=== PATIENT | male | born 1965 | race Caucasian/White ===

== ENCOUNTER 2019-04-15 15:43 | Emergency (ER) | payer SELFPAY ==
[~2019-04-15] VITALS: Ht 185.5 cm; Wt 105.0 kg
[2019-04-15] MEDS ORDERED: ASPIRIN 325 MG (5 GR) TABLET PO ONE (17:15)
[2019-04-15] MEDS ORDERED: KETOROLAC 30 MG/ML VIAL IVP ONE (17:15)
[2019-04-15] MEDS ORDERED: ACETAMINOPHEN 325 MG TABLET PO ONE (17:15)
[2019-04-15 17:25] LABS: WHITE BLOOD COUNT 5.1 10^3/uL (4.3-11.0)
[2019-04-15 17:26] LABS: BASOPHILS % (AUTO) 1 % (0-10); EOSINOPHILS % (AUTO) 2 % (0-10); HEMATOCRIT 45 % (40-54); HEMOGLOBIN 15.4 G/DL (13.3-17.7); LYMPHOCYTES % (AUTO) 33 % (12-44); MEAN CORPUSCULAR HEMOGLOBIN 30 PG (25-34); MEAN CORPUSCULAR HGB CONC 34 G/DL (32-36); MEAN CORPUSCULAR VOLUME 89 FL (80-99); MEAN PLATELET VOLUME 11.2 FL (7.4-10.4); MONOCYTES % (AUTO) 9 % (0-12); NEUTROPHILS % (AUTO) 55 % (42-75); PLATELET COUNT 161 10^3/uL (130-400); RED CELL DISTRIBUTION WIDTH 11.7 % (10.0-14.5)
[2019-04-15 17:27] LABS: EOSINOPHILS # (AUTO) 0.1 10^3/uL (0.0-0.3); LYMPHOCYTES # (AUTO) 1.7 X 10^3 (1.0-4.0); MONOCYTES # (AUTO) 0.5 X 10^3 (0.0-1.0); NEUTROPHILS # (AUTO) 2.8 X 10^3 (1.8-7.8)
--- NOTE | 2019-04-15 17:29 | Diagnostic Imaging Report ---
PATIENT HISTORY: Back pain and chest pain. TECHNIQUE: Two views of the chest. COMPARISON: None. FINDINGS: The lung volumes are normal. No focal consolidation is seen. No large pleural effusion or pneumothorax is seen. The cardiomediastinal silhouette is normal in size and contour. No acute osseous abnormality is seen. IMPRESSION: No acute pulmonary abnormality seen. Dictated by: Dictated on workstation # [id number]
[2019-04-15 17:38] LABS: INR 0.9 (0.8-1.4); PROTHROMBIN TIME PATIENT 12.9 SEC (12.2-14.7)
[2019-04-15 17:39] LABS: FIBRIN DEGRADATION PRODUCTS 0.36 UG/ML (0.00-0.49)
[2019-04-15 17:46] LABS: ALANINE AMINOTRANSFERASE 37 U/L (0-55); ALKALINE PHOSPHATASE 77 U/L (40-136); BILIRUBIN,TOTAL 1.3 MG/DL (0.1-1.0); BUN/CREATININE RATIO 11; CALCIUM 9.5 MG/DL (8.5-10.1); CARBON DIOXIDE 23 MMOL/L (21-32); CHLORIDE 106 MMOL/L (98-107); CREATININE SERUM 1.05 MG/DL (0.60-1.30); GFR ESTIMATED > 60; GLUCOSE 107 MG/DL (70-105); POTASSIUM 4.1 MMOL/L (3.6-5.0); SODIUM 141 MMOL/L (135-145); TOTAL PROTEIN 7.7 GM/DL (6.4-8.2)
[2019-04-15 17:47] LABS: ALBUMIN 4.9 GM/DL (3.2-4.5)
--- NOTE | 2019-04-15 18:08 | ED Cardiac General ---
History of Present Illness General Chief Complaint: Chest Pain Stated Complaint: CHEST/BACK PAIN History of Present Illness Date Seen by Provider: Apr 15, 2019 Time Seen by Provider: 16:00 Initial Comments The patient is a 53-year-old male never smoker with a history of hypertension and without history of hyperlipidemia or diabetes. The patient presents to the emergency department for evaluation of an acute episode of what sounds like quite chronic chest discomfort with onset about 4 hours prior to arrival. Discomfort is sharp and localizes well to the left upper chest and is focal and about a 6 out of 10 in severity. It is nonpleuritic and nonexertional. Nothing seems to make it better or worse. Associated thoracic and lumbar back discomfort which the patient states is entirely chronic and not significantly worse than usual today. No associated nausea or vomiting, shortness of breath, cold sweats or chills, abdominal pain, flank pain, recent immobilization, hemoptysis, calf pain or swelling, surgery, personal history of venous thromboembolic disease (patient does have a blood clot history in first-degree relatives), estrogen or steroid use. Patient states that recurrent chest discomfort has been problematic for years. He has had repeated presentations to care for this issue including emergency department visits and evaluations by cardiology as well as negative stress tests and cardio scans as recently as a year ago. He has never had a cardiac catheterization. He states this time that he has had intermittent chest discomfort for about 2 weeks and that it has become more severe and constant over the last 4-5 hours as above. Allergies and Home Medications Allergies Coded Allergies: No Known Drug Allergies (Unverified , 04/15/19) Patient Home Medication List Home Medication List Reviewed: Yes Review of Systems Review of Systems Constitutional: see HPI All Other Systems Reviewed Negative Unless Noted: Yes (Negative excepted noted.) Past [id number]-[id number] Hx Past Med/Social Hx: Reviewed Nursing Past Med/Soc Hx Patient Social History Recent Foreign Travel: No Family Medical History Reviewed Nursing Family Hx Physical Exam Vital Signs Capillary Refill : Height, Weight, BMI Height: '" Weight: lbs. oz. kg; BMI Method: General Appearance: No Apparent Distress Other comments This is a 53-year-old male appearing nontoxic and in no acute distress. Head is normocephalic and atraumatic. Neck is supple and nontender. Oropharynx is moist. Lungs are clear to auscultation in all stations. There is normal S1 and S2 without rubs or gallops and capillary refill is appropriate, less than 2 seconds globally. Abdomen is soft, nontender and nondistended. Skin is warm and dry without cyanosis, clubbing or edema. Psychiatrically, the patient Demster is appropriate mood and affect and is alert. No calf swelling, erythema, tenderness or other acute abnormality to the bilateral lower extremities noted bilaterally. Progress/Results/Core Measures Results/Orders Lab Results Laboratory Tests Test 04/15/19 16:10 Range/Units White Blood Count 5.1 4.3-11.0 10^3/uL Red Blood Count 5.12 4.35-5.85 10^6/uL Hemoglobin 15.4 13.3-17.7 G/DL Hematocrit 45 40-54 % Mean Corpuscular Volume 89 80-99 FL Mean Corpuscular Hemoglobin 30 25-34 PG Mean Corpuscular Hemoglobin Concent 34 32-36 G/DL Red Cell Distribution Width 11.7 10.0-14.5 % Platelet Count 161 130-400 10^3/uL Mean Platelet Volume 11.2 H 7.4-10.4 FL Neutrophils (%) (Auto) 55 42-75 % Lymphocytes (%) (Auto) 33 12-44 % Monocytes (%) (Auto) 9 0-12 % Eosinophils (%) (Auto) 2 0-10 % Basophils (%) (Auto) 1 0-10 % Neutrophils # (Auto) 2.8 1.8-7.8 X 10^3 Lymphocytes # (Auto) 1.7 1.0-4.0 X 10^3 Monocytes # (Auto) 0.5 0.0-1.0 X 10^3 Eosinophils # (Auto) 0.1 0.0-0.3 10^3/uL Basophils # (Auto) 0.0 0.0-0.1 10^3/uL Prothrombin Time 12.9 12.2-14.7 SEC INR Comment 0.9 0.8-1.4 Activated Partial Thromboplast Time 28 24-35 SEC D-Dimer 0.36 0.00-0.49 UG/ML Sodium Level 141 135-145 MMOL/L Potassium Level 4.1 3.6-5.0 MMOL/L Chloride Level 106 98-107 MMOL/L Carbon Dioxide Level 23 21-32 MMOL/L Anion Gap 12 5-14 MMOL/L Blood Urea Nitrogen 12 7-18 MG/DL Creatinine 1.05 0.60-1.30 MG/DL Estimat Glomerular Filtration Rate > 60 BUN/Creatinine Ratio 11 Glucose Level 107 H 70-105 MG/DL Calcium Level 9.5 8.5-10.1 MG/DL Corrected Calcium 8.5-10.1 MG/DL Total Bilirubin 1.3 H 0.1-1.0 MG/DL Aspartate Amino Transf (AST/SGOT) 31 5-34 U/L Alanine Aminotransferase (ALT/SGPT) 37 0-55 U/L Alkaline Phosphatase 77 40-136 U/L Troponin I < 0.30 <0.30 NG/ML Pro-B-Type Natriuretic Peptide 22.9 <75.0 PG/ML Total Protein 7.7 6.4-8.2 GM/DL Albumin 4.9 H 3.2-4.5 GM/DL My Orders Orders - BENJAMIN DIAZ MD Cbc With Automated Diff (04/15/19 17:11) Comprehensive Metabolic Panel (04/15/19 17:11) Troponin I Fs (04/15/19 17:11) Ekg Tracing (04/15/19 17:11) Chest Pa/Lat (2 View) (04/15/19 17:11) Fibrin Degradation Products (04/15/19 17:11) Probnp Fs (04/15/19 17:11) Protime With Inr (04/15/19 17:11) Partial Thromboplastin Time (04/15/19 17:11) Aspirin Tablet (Aspirin Tablet) (04/15/19 17:15) Ketorolac Injection (Toradol Injection) (04/15/19 17:15) Acetaminophen Tablet/Caplet (Tylenol T (04/15/19 17:15) Medications Given in ED Current Medications Medications Dose Ordered Sig/Kedar Route Start Time Stop Time Status Last Admin Dose Admin Acetaminophen 975 mg ONCE ONCE PO 04/15/19 17:15 04/15/19 17:16 DC 04/15/19 17:29 975 MG Aspirin 325 mg ONCE ONCE PO 04/15/19 17:15 04/15/19 17:16 DC 04/15/19 17:29 325 MG Ketorolac Tromethamine 30 mg ONCE ONCE IVP 04/15/19 17:15 04/15/19 17:16 DC 04/15/19 17:29 30 MG Progress Progress Note : Time: 18:08 Progress Note 53-year-old male with history of hypertension who presents with an acute episode of rather atypical, relatively chronic chest discomfort. Has back pain as well today that per patient is absolutely chronic for him. Has had repeated episodes of similar chest pain with negative workups in the past. This episode started 4- 5 hours prior to arrival. HEART score 2. Patient is [place] low risk for pulmonary embolism. Vital signs and clinical examination reassuring. We'll check labs and EKG and chest x-ray and we'll give a full strength aspirin and we'll then reevaluate. If workup is reassuring, plan will be for discharge to follow up very closely with primary care in the next 1-2 days and with cardiology within the next 72 hours. Patient understands and agrees with this plan of care. Update 1800: Workup as above is unremarkable and reassuring. Patient states he feels considerably better upon reassessment after medication here in the emergency department. We will release home at this time as per plan above. Patient is to follow up very closely in the cardiology clinic, ideally within the next 72 hours. We will provide contact information to make a follow-up appointment. Patient is also to follow up with primary care in the next 1-2 days. He understands that if he feels worse is that of better, develops recurrent or worsening symptoms or any other new symptoms of concern that he sh ould return right away to the emergency department for reevaluation. All questions are answered. EKG : Comment Sinus rhythm, rate 63, no acute ST elevation or depression, W[place] 119, QRS 103, QTC 424, EP interpretation. Diagnostic Imaging Comments CHEST PA/LAT (2 VIEW) PATIENT HISTORY: Back pain and chest pain. TECHNIQUE: Two views of the chest. COMPARISON: None. FINDINGS: The lung volumes are normal. No focal consolidation is seen. No large pleural effusion or pneumothorax is seen. The cardiomediastinal silhouette is normal in size and contour. No acute osseous abnormality is seen. IMPRESSION: No acute pulmonary abnormality seen. Dictated on workstation # [id number] Departure Impression Primary Impression: Other chest pain Disposition: 01 HOME, SELF-CARE Condition: Improved Departure-Patient Inst. Referrals: CARLITA TINEO MD (PCP) Primary Care Physician ASH GREWAL MD Patient Instructions: Chest Pain (DC) Add. Discharge Instructions: Follow-up closely with her primary care physician in the clinic in the next 1-2 days. Please call the [facility] for a close follow-up appointment as well, ideally within the next 72 hours. You may try diclofenac as needed for discomfort. Return to the emergency department immediately with recurrent or worsening symptoms or with any other new symptoms of concern. Scripts Diclofenac Potassium (Diclofenac Potassium) 50 Mg Tablet 50 MG PO TID for Pain, #30 TAB Prov: BENJAMIN DIAZ MD 04/15/19 BENJAMIN DIAZ MD Apr 15, 2019 18:08 POS
[2019-04-15] MEDS ORDERED: DICL50TA4 PO (18:15)
[2019-04-15 18:30] VITALS: BP 142/82
== END 2019-04-15 18:36 | disposition home or self-care (01) ==
LOC: EDBD 15:46 → ER FS 15:46
DX: R07.89 Other chest pain (principal); I10 Essential (primary) hypertension
CPT/HCPCS: 36415; 71046; 80053; 83880; 84484; 85025; 85379; 85610; 85730; 93005

== ENCOUNTER → 2021-04-14 | Outpatient (CLI) | payer OTHER ==
[~2021-04-14] MED LIST: DICL50TA4 PO
--- NOTE | 2021-04-14 09:22 | Diagnostic Imaging Report ---
EXAMINATION: CT abdomen and pelvis without contrast. TECHNIQUE: Multiple contiguous axial images were obtained through the abdomen and pelvis without the use of intravenous contrast. All CT scans use one or more of the following dose optimizing techniques: automated exposure control, MA and/or KvP adjustment based on patient size and exam type or iterative reconstruction. HISTORY: LEFT FLANK PAIN COMPARISON: None available. FINDINGS: Lung bases: The lung bases are clear. Solid organs: Hepatic cysts are present. Liver is otherwise unremarkable. The gallbladder is surgically absent. There is no biliary ductal dilation. Pancreas is normal. Spleen is normal. Adrenal glands are normal. The kidneys are normal without visualized calculus or hydronephrosis. Bowel: The stomach and small bowel are normal without obstruction. The colon and appendix are normal. Peritoneum: There is no intraperitoneal free fluid or free air. No suspicious lymphadenopathy. Vasculature: Calcification of the aorta without aneurysm. Musculoskeletal: Degenerative changes of the spine without suspicious osseous lesion or compression fracture. Pelvis: The prostate gland is normal. The urinary bladder is normal. IMPRESSION: 1. No visualized renal calculus or hydronephrosis. 2. No acute abnormality in the abdomen or pelvis. Dictated by: Dictated on workstation # [id number]
== END ==
LOC: RAD FS 08:57
PROVIDERS: ATTEND Family Medicine
DX: R10.9 Unspecified abdominal pain (principal)
CPT/HCPCS: 74176